=== PATIENT | female | born 1950 | race Caucasian/White ===

== ENCOUNTER 2022-01-15 08:03 | Emergency (ER) | payer MEDICARE, SELFPAY ==
[2022-01-15 08:16] VITALS: BP 156/92; PULSE 79; RESP 18; TEMP 37; O2SAT 99
--- NOTE | 2022-01-15 08:22 | ED.EYEPROB ---
HPI - Eye Problem General Chief complaint: Eye Problems Stated complaint: Right Eye Pain Time Seen by Provider: 01/15/22 08:15 Source: patient and RN notes reviewed Mode of arrival: ambulatory Limitations: no limitations History of Present Illness HPI Narrative: 71-year-old female presents to the [facility] with right lower eyelid redness swelling that started last night. Patient states she has had increased watering of her eye. Denies any change in vision. No treatment prior to arrival. Patient reports being blind in the left eye due to macular degeneration. MD chief complaint: other (right lower eye jess red and pain) Related Data Home Medications Medication Instructions Recorded Confirmed apixaban [Eliquis] 5 mg PO DAILY 01/15/22 01/15/22 atorvastatin 40 mg PO DAILY 01/15/22 01/15/22 mirabegron [Myrbetriq] 25 mg PO DAILY 01/15/22 01/15/22 quinapril 20 mg PO DAILY 01/15/22 01/15/22 Allergies Allergy/AdvReac Type Severity Reaction Status Date / Time latex Allergy Unknown Hives Verified 01/15/22 08:22 Review of Systems Review of Systems: All systems reviewed & are unremarkable except as noted in HPI and below Constitutional: Constitutional: Reports no additional constitutional complaints, Denies chills and Denies fever(s) Eyes: Eyes: Reports as per HPI, Denies exophthalmos, Denies change in vision, Denies loss of vision and Reports eye pain (right lower eye lid pain, swelling and redness) ENT: Reports system reviewed and no additional complaints, except as documented Cardiovascular: Cardiovascular: Reports no additional cardiovascular complaints Respiratory: Respiratory: Reports no additional respiratory complaints Gastrointestinal: Gastrointestinal: Reports no additional gastrointestinal complaints Musculoskeletal: Musculoskeletal: Reports no additional musculoskeletal complaints Integumentary/Breasts: Skin/Breast: Reports system reviewed and no additional complaints, except as docu Neurologic: Reports system reviewed and no additional complaints, except as documented Psychiatric: Psychiatric: Reports no additional psychiatric complaints Allergic/Immunologic: Allergic/Immunologic: Reports no additional allergic/immunologic complaints PMFSH Past Medical History Medical History (Updated 01/15/22 @ 08:27 by Miri Gomez APRN) Afib High cholesterol Hypertension Surgical History Surgical History (Updated 01/15/22 @ 08:25 by Miri Gomez APRN) History of appendectomy No history of previous surgery Family History Family History Mother Patient's mother is Social History Social History (Updated 01/15/22 @ 08:25 by Miri Gomez APRN) Alcohol intake: never Living arrangements: with family Gender identity (if verbalized by the patient): Female Comments At the time of my signature, I reviewed and agree with the nursing past medical, surgical, social, and family history. There is no relevant family history pertinent to the patient complaint. Exam Const: General: healthy appearing, no acute distress and alert Nutritional Appearance: well nourished Orientation/consciousness: patient oriented x3 Limitations: no limitations HENMT: Head: normal to inspection Ears: external ears normal and EAC's normal General nose exam: No nasal discharge present Face and sinus: normal facial exam and face symmetric Throat: posterior oropharynx normal Eyes: Alignment and Position: alignment normal Eyelids: eyelid abnormality right lower eyelid erythema, swelling and tenderness; no crusting or scaling of lid margins Pupils: Equal, round and reactive pupils present EOM: EOMs intact bilaterally Direct Ophthalmoscopy: no photophobia Neck: Neck: normal visual inspection, no lymphadenopathy and no meningeal signs Chest: Chest palpation & inspection: normal inspection of the chest Resp: Effort & Inspection: normal respiratory
== END 2022-01-15 08:32 | disposition home or self-care (01) ==
PROVIDERS: Emergency Provider Nurse Practitioner; PCP Family Medicine Adolescent Medicine
DX: H01.002 Unspecified blepharitis right lower eyelid (principal); I48.91 Unspecified atrial fibrillation; E78.00 Pure hypercholesterolemia, unspecified; I10 Essential (primary) hypertension
CPT/HCPCS: 99213; G0463

== ENCOUNTER 2023-01-27 01:09 | Day surgery (SDC) | payer MEDICARE, SELFPAY ==
[2023-01-15 13:18] VITALS: BMI 25.2
--- NOTE | 2023-01-24 15:45 | PM.HPGS ---
History of Present Illness History of Present Illness Consent: Risks, benefits, and alternatives have been discussed and questions answered. Patient agrees to proceed with procedure. Chief complaint: Rectal Bleed Narrative: Bere Viera is a 72 year old female referred because of a positive Cologuard test. 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 There was a prior history of ischemic colitis about 15 years ago Review of Systems Review of Systems: All systems reviewed & are unremarkable except as noted in HPI and below PMFSH Past Medical History Medical History History of CVA (cerebrovascular accident) (2014) History of ischemic colitis Surgical History Surgical History History of appendectomy (~1964) History of total abdominal hysterectomy and bilateral salpingo-oophorectomy (2001) Family History Family History Mother Patient's mother is Breast cancer Father MVA (motor vehicle accident) Social History Social History Smoking status: Never smoker Second hand tobacco smoke exposure: No Alcohol intake: never Substance use: never Substance use type: does not use Living arrangements: with family Occupation/Education: retired Gender identity (if verbalized by the patient): Female Sexual Orientation (if Verbalized by the Patient): Straight or Heterosexual Spiritual care concerns: No Agree to blood products: Yes Meds Home Medications and Allergies Home Medications Medication Instructions Recorded Confirmed Type calcium carbonate 600 mg calcium 600 mg PO BID 02/27/22 01/15/23 History (1,500 mg) tablet (Calcium) apixaban 5 mg tablet (Eliquis) 5 mg PO BID #180 tabs 05/13/22 01/15/23 Rx atorvastatin 40 mg tablet 40 mg PO DAILY #90 tabs 06/10/22 01/15/23 Rx metoprolol succinate 100 mg 100 mg PO DAILY #90 tabs 06/10/22 01/27/23 Rx tablet,extended release 24 hr mirabegron 25 mg tablet,extended 25 mg PO DAILY #90 tabs 06/10/22 01/15/23 Rx release 24 hr (Myrbetriq) hydrochlorothiazide 25 mg tablet 25 mg PO DAILY #90 tabs 09/10/22 01/15/23 Rx pantoprazole 40 mg tablet,delayed 40 mg PO QAM #90 tabs 09/10/22 01/15/23 Rx release lisinopril 20 mg tablet 20 mg PO DAILY #90 tabs 10/10/22 01/15/23 Rx Allergies Allergy/AdvReac Type Severity Reaction Status Date / Time latex Allergy Unknown Hives Verified 01/27/23 12:49 Exam Const: General: alert Orientation/consciousness: patient oriented x3 Resp: Auscultation: clear to auscultation bilaterally Cardio: Rhythm: regular rhythm GI: GI Palp: Yes Soft to palpation and No Tenderness to palpation present (GI) Neuro: General: patient oriented x3 Assessment and Plan Assessment and plan (1) Positive colorectal cancer screening using Cologuard test: Code(s): R19.5 - Other fecal abnormalities Status: Acute Assessment and Plan: Colonoscopy with possible biopsy or polypectomy or cautery or injection of substances.
[2023-01-27 12:50] VITALS: BP 189/89; PULSE 77; RESP 20; TEMP 36.1; O2SAT 100
[2023-01-27] MEDS: LACTATED RINGERS 1,000 ML 150 ML IV CONT (13:03)
--- NOTE | 2023-01-27 13:17 | WPDANESEPPF ---
Anes - Initial Pre Proc Eval Procedure: Operation Date: 01/27/23 14:30 Proposed Procedures p Colonoscopy - Manoj Garcia MD Date/Time: 01/27/23 13:17 Surgeon: Manoj Garcia MD Pre Op Diagnosis: Rectal Bleed Patient Data Age: 72 Gender: F Height: 1.6 m Weight: 64.1 kg Last Vital Signs Temp 97 F L 01/27/23 12:50 Pulse 77 01/27/23 12:50 Resp 20 01/27/23 12:50 BP 189/89 H 01/27/23 12:50 Pulse Ox 100 01/27/23 12:50 O2 Del Method Room Air 01/27/23 12:50 Allergies Allergy/AdvReac Type Severity Reaction Status Date / Time latex Allergy Unknown Hives Verified 01/27/23 12:49 Home Medications Medication Instructions Recorded Confirmed Type calcium carbonate 600 mg calcium 600 mg PO BID 02/27/22 01/15/23 History (1,500 mg) tablet (Calcium) apixaban 5 mg tablet (Eliquis) 5 mg PO BID #180 tabs 05/13/22 01/15/23 Rx atorvastatin 40 mg tablet 40 mg PO DAILY #90 tabs 06/10/22 01/15/23 Rx metoprolol succinate 100 mg 100 mg PO DAILY #90 tabs 06/10/22 01/27/23 Rx tablet,extended release 24 hr mirabegron 25 mg tablet,extended 25 mg PO DAILY #90 tabs 06/10/22 01/15/23 Rx release 24 hr (Myrbetriq) hydrochlorothiazide 25 mg tablet 25 mg PO DAILY #90 tabs 09/10/22 01/15/23 Rx pantoprazole 40 mg tablet,delayed 40 mg PO QAM #90 tabs 09/10/22 01/15/23 Rx release lisinopril 20 mg tablet 20 mg PO DAILY #90 tabs 10/10/22 01/15/23 Rx Patient hx anesthesia problems: none Family hx anesthesia problems: none Results Review: All pre-operative results and documents have been reviewed as part of the pre-operative evaluation. [facility] Past Medical History Medical History History of CVA (cerebrovascular accident) (2014) History of ischemic colitis Surgical History Surgical History History of appendectomy (~1965) History of total abdominal hysterectomy and bilateral salpingo-oophorectomy (2001) Family History Family History Mother Patient's mother is Breast cancer Father MVA (motor vehicle accident) Social History Social History Smoking status: Never smoker Second hand tobacco smoke exposure: No Alcohol intake: never Substance use: never Substance use type: does not use Living arrangements: with family Occupation/Education: retired Gender identity (if verbalized by the patient): Female Sexual Orientation (if Verbalized by the Patient): Straight or Heterosexual Spiritual care concerns: No Agree to blood products: Yes Anes - Eval Final PreProcedure Day of Procedure 01/27/23 13:17 Patient weight: normal Heart: regular rate and rhythm Lungs: clear to auscultation Airway: Mallampati scale class II Neurological: alert and oriented Last oral intake: >/= 8 hours ASA classification: III Emergent: no Anesthetic plan: proceed Anesthesia type and monitoring: general GIVS and standard monitoring Results Review: All pre-operative results and documents have been reviewed as part of the pre-operative evaluation. Informed Consent: The patient's anesthetic plan and its attendant risks and benefits were discussed with the patient/family/POA. Questions were solicited and answers provided to the satisfaction of the patient/family/POA.
[2023-01-27 13:35] VITALS: BP 148/70; PULSE 70; RESP 19; O2SAT 94
[2023-01-27 13:45] VITALS: BP 157/88; PULSE 64; RESP 19; O2SAT 100
[2023-01-27 13:55] VITALS: BP 170/90; PULSE 67; RESP 17; O2SAT 100
== END 2023-01-27 14:03 | disposition home or self-care (01) ==
PROVIDERS: PCP Family Medicine Adolescent Medicine; Visit Provider Internal Medicine Gastroenterology
PROC: 0DJD8ZZ Inspection of Lower Intestinal Tract, Via Natural or Artificial Opening Endoscopic (ICD-10-PCS; CPT 45378; principal; 2023-01-27 14:30)
DX: Z12.11 Encounter for screening for malignant neoplasm of colon (principal); R19.5 Other fecal abnormalities; Z86.73 Personal history of transient ischemic attack (TIA), and cerebral infarction without residual deficits; Z79.01 Long term (current) use of anticoagulants
CPT/HCPCS: G0121; J2704; J7120

== ENCOUNTER → 2023-03-13 14:56 | Outpatient (CLI) | payer MEDICARE, SELFPAY ==
--- NOTE | ~2023-03-13 | MM_ITS ---
EXAMINATION: MM screening sanjay BI w mason HISTORY: Screening mammogram TECHNIQUE: Craniocaudal and mediolateral oblique 3-D tomosynthesis images were obtained and synthetic 2-D images were generated. CAD analysis was submitted and interpreted. COMPARISON: 06/06/2018, 05/28/2016 bilateral screening mammogram examinations BREAST PARENCHYMAL COMPOSITION: There are scattered areas of fibroglandular density. FINDINGS: There is no evidence of suspicious mass, calcification, or architectural distortion to sugg est malignancy in either breast. There has been no suspicious interval change. IMPRESSION: 1. No mammographic evidence of malignancy. 2. Recommend routine screening mammography in one year. BI-RADS Category 1: Negative Reviewed, dictated and finalized at location A.
== END ==
PROVIDERS: PCP Family Medicine Adolescent Medicine; Visit Provider Family Medicine Adolescent Medicine
DX: Z12.31 Encounter for screening mammogram for malignant neoplasm of breast (principal)
CPT/HCPCS: 77063; 77067

== ENCOUNTER 2023-12-25 13:28 | Outpatient (CLI) | payer MEDICARE, SELFPAY ==
--- NOTE | ~2023-12-25 | XR_ITS ---
EXAMINATION: XR barium swallow modified DATE: 12/25/2023 14:25 INDICATION: Dysphagia. TECHNIQUE: The patient was given barium-containing material of multiple consistencies to swallow by t he speech pathologist while I performed fluoroscopy. Fluoroscopy exposure time was 0.7 minutes. The n umber of fluoroscopy images saved to the PACS was 1. Dose-area product was 0.514 Gy-cm^2. FINDINGS: The oral stage, pharyngeal stage, and cervical/esophageal stage of the swallow are normal. IMPRESSION: 1. Normal modified barium swallow. 2. Please refer to the speech therapy report for recommendations. Reviewed, dictated and finalized at location A.
--- NOTE | 2023-12-26 17:13 | REHSTMBS ---
Assessment and note entered by Aracelis Osorio, MARKETING SALES REPRESENTATIVE Modified Barium Swallow Evaluation Feeding Type Recommended Oral Food Consistency Regular, Level 7 Liquid Consistency Thin (0) ST Clinical Summary MODIFIED BARIUM SWALLOW STUDY This patient was seen for a Modified Barium Swallow study at the request of her physician. Patient reports that she has noticed that meat becomes hung up in her throat but denied difficulty swallowing most other foods. Patient was viewed in the lateral position to the level of C5/C6. Patient was presented with thin liquid contrast medium per cup, pudding mixed with semi-solid contrast medium per spoon, and crackers and fruit cocktail pieces both coated with the semi-solid mixture. She exhibited quick swallows with no evidence of penetration/ aspiration and no significant pharyngeal residue. Results suggest the patient's swallowing skills are within normal limits. She was instructed to use head flexion (chin tucked toward chest) when swallowing [id number] foods and to cut meat and other solid foods into smaller pieces. Patient is referred back to her physician for further assessment of her complaints. Thank you for this referral.
== END 2023-12-25 13:29 | disposition home or self-care (01) ==
LOC: ANHIMG 13:29
PROVIDERS: PCP Family Medicine Adolescent Medicine; Visit Provider Family Medicine Adolescent Medicine
DX: R13.10 Dysphagia, unspecified (principal)
CPT/HCPCS: 92611

== ENCOUNTER 2025-09-20 08:45 | Emergency (ER) | payer MEDICARE, SELFPAY ==
--- NOTE | ~2025-09-20 | XR_ITS ---
Examination: XR knee RT 3V, XR wrist LT min 3V, XR shoulder LT min 2V Clinical History: trauma Comparison: None Technique: 4 views left shoulder, 4 views left wrist, 3 views right knee Findings/impression: Left shoulder: 1. No fracture or dislocation left shoulder. 2. Mild degenerative changes glenohumeral joint and AC joint. Left wrist: 1. No fracture or dislocation left wrist. Right knee: 1. No fracture, dislocation, or effusion right knee. 2. Minimal marginal osteophytes medial compartment. Reviewed, dictated and finalized at location R. ETIC INTERN
--- NOTE | ~2025-09-20 | CT_ITS ---
EXAMINATION: CT facial & cervical spine wo DATE: 09/20/2025 09:46 INDICATION: Trauma. TECHNIQUE: Computed tomography (CT) of the maxillofacial region and cervical spine was performed without intravenous contrast. Automated exposure control and iterative reconstruction technique were employed. The dose-length product was 179.13 mGy-cm. COMPARISON: Head CT 05/30/2015 FINDINGS: MAXILLOFACIAL CT: There is rightward deviation of the nasal septum. There is an old fracture deformity of left nasal bone. There is mild mucosal thickening in the paranasal sinuses. CERVICAL SPINE CT: There is mild kyphosis of cervical spine. There is 3 degrees dextrocurvature of cervical spine. Vertebral body heights are normal. There is mildly decreased disc height at C3-C4 and severely decreased disc height from C4-C5 through C6- C7. There is multilevel severe uncovertebral joint and facet joint o steoarthritis. There is mild neural foraminal stenosis at multiple levels on either side. There is mild central canal stenosis at C3-C4, C4-C5, C5-C6, and C6-C7. IMPRESSION: 1. No acute fracture. 2. Severe cervical spondylosis. Reviewed, dictated and finalized at location E. CTOR OF VITAL STATISTICS
--- NOTE | ~2025-09-20 | CT_ITS ---
EXAMINATION: CT brain wo con DATE: 09/20/2025 09:46 INDICATION: Trauma. TECHNIQUE: Computed tomography (CT) of the head was performed without intravenous contrast. The mA was adjusted according to patient size. Iterative reconstruction technique was employed. The dose-length product was 605.33 mGy-cm. COMPARISON: Head CT 05/30/2015 FINDINGS: There is an old infarct involving the right basal ganglia, anterior limb right internal capsule, and right frontal lobe ayala radiata. There are scattered areas of low attenuation in the cerebral white matter. There is no intracranial hemorrhage, acute infarction, or abnormal intracranial mass lesion. There is ex vacuo dilatation of right lateral ventricle. The orbits are normal. There is mild mucosal thickening in the paranasal sinuses. The mastoid air cells are normal. IMPRESSION: 1. Old infarct involving the right basal ganglia, anterior limb right internal capsule, and right frontal lobe ayala radiata. 2. Moderate nonspecific cerebral white matter disease, which likely represents chronic small vessel ischemic disease. Reviewed, dictated and finalized at location E. CHIEF'S AIDE
--- NOTE | ~2025-09-20 | XR_ITS ---
XR elbow LT min 3V 09/20/2025 10:13 Indication: Trauma. Left elbow pain. Procedure: 3 views left elbow Comparison: No prior studies for comparison. Findings: There is a nondisplaced radial neck fracture. Large joint effusion. Mild osteoarthritis of the elbow. Impression: 1: Nondisplaced radial neck fracture. Reviewed, dictated and finalized at location O. ROBE IMAGE CONSULTANT Impression: 1: Nondisplaced radial neck fracture.
[2025-09-20 08:49] VITALS: BP 183/92; PULSE 65; RESP 16; TEMP 36.4; O2SAT 98
--- NOTE | 2025-09-20 09:31 | ED.GENADULT ---
HPI - General Adult General Chief complaint: Fall Stated complaint: fall this am blood thinner, nose left arm right le Time Seen by Provider: 09/20/25 08:54 History of Present Illness HPI narrative: 75-year-old female presented to the emergency department for evaluation for injury sustained from a ground level fall. Patient was walking and tripped over a bump in the sidewalk. Patient was attempting to protect her face when she fell and she ended up injuring her left arm and did have an abrasion to her nose. Patient also has an abrasion to her right knee. Patient is on Eliquis for AFib. Patient did take Tylenol for pain control. patient declined any additional medications for pain control Related Data Home Medications ?Medication ?Instructions ?Recorded ?Confirmed ?Last Taken ?Type calcium carbonate (Calcium 600) 600 mg PO BID 02/27/22 04/12/25 Unknown History Allergies Allergy/AdvReac Type Severity Reaction Status Date / Time latex Allergy Unknown Hives Verified 09/20/25 08:54 Review of Systems Review of Systems: All systems reviewed & are unremarkable except as noted in HPI and below PMFSH Past Medical History Medical History (Updated 09/20/25 @ 10:47 by Igor Hidalgo MD) Positive colorectal cancer screening using Cologuard test History of CVA (cerebrovascular accident) (2014) History of ischemic colitis Surgical History Surgical History History of total abdominal hysterectomy and bilateral salpingo-oophorectomy (2001) History of appendectomy (~1965) Family History Family History Mother Patient's mother is Breast cancer Father MVA (motor vehicle accident) Social History Social History (Updated 04/12/25 @ 07:16 by Esme Gaines CMA) Smoking status: Never smoker Second hand tobacco smoke exposure: No Alcohol intake: never Substance use: never Substance use type: does not use Lack of Transportation: No Lack of Food: Never True Current Housing: I Have Housing Concerned About Future Housing: No Difficulty Paying Gas/Electric Bills: No Difficulty Paying for Meds: No Currently Unemployed: No Education: High School Diploma/GED Difficulty w/ Childcare or Family Care: No Living arrangements: with family Occupation/Education: retired Gender identity (if verbalized by the patient): Female Sexual Orientation (if Verbalized by the Patient): Straight or Heterosexual Spiritual care concerns: No Agree to blood products: Yes Exam Narrative: APPEARANCE: Uncomfortable appearing HEAD: normocephalic, atraumatic. EYES: PERRLA/EOMI, conjunctivae clear. NOSE: Normal no drainage EARS:TMS clear with good light reflex. THROAT: Pharynx clear, no exudate. NECK: Supple. No adenopathy, no masses. RESPIRATORY: Airway patent, respirations nonlabored. Clear to auscultation bilaterally, no rales, rhonchi, wheezing. CARDIOVASCULAR: Regular rate and rhythm without murmurs rubs or gallops. ABDOMINAL: Soft, nontender, nondistended, normal bowel sounds MUSCULOSKELETAL: Left shoulder tenderness with decreased range of motion, left elbow tenderness with decreased range of motion, no deformity NEURO: Alert. Cranial nerves II through XII intact. Good gait. Good coordination SKIN: Facial abrasion Course Vital Signs Vital signs: Vital Signs Temperature 97.5 F L 09/20/25 08:49 Pulse Rate 65 09/20/25 08:49 Respiratory Rate 16 09/20/25 08:49 Blood Pressure 183/92 H 09/20/25 08:49 Pulse Oximetry 98 09/20/25 08:49 Oxygen Delivery Room Air 09/20/25 08:49 Temperature 97.5 F L 09/20/25 08:49 Pulse Rate 84 09/20/25 11:39 Respiratory Rate 14 09/20/25 11:39 Blood Pressure 134/86 09/20/25 11:39 Pulse Oximetry 98 09/20/25 11:39 Oxygen Delivery Room Air 09/20/25 08:49 [facility] Narrative Medical decision making narrative: 75-year-old female presents emergency department for evaluation of high having a ground level fall. Patient had negative imaging of brain, facial bones and cervical spine. Patient had negative knee x-ray and wrist x-ray and shoulder x-ray but patient does have a radial head fracture on the left elbow. Patient was provided a sling for comfort. Patient was encouraged close follow-up with Orthopedics. All questions concerns were addressed patient was well-appearing at time of discharge. Differential Diagnosis Differential Diagnosis: Subdural hematoma, subarachnoid hemorrhage, nasal fracture, cervical spine fracture, elbow fracture, elbow dislocation, wrist fracture, knee contusion, knee fracture Imaging Data Radiologist's impression: ITS Impressions Head CT 09/20/25 09:50 IMPRESSION: 1. Old infarct involving the right basal ganglia, anterior limb right internal capsule, and right frontal lobe ayala radiata. 2. Moderate nonspecific cerebral white matter disease, which likely represents chronic small vessel ischemic disease. Head/Cervical Spine/Facial Bones CT 09/20/25 09:53 IMPRESSION: 1. No acute fracture. 2. Severe cervical spondylosis. Elbow X-Ray 09/20/25 10:13 Impression: 1: Nondisplaced radial neck fracture. Discharge Plan Discharge Clinical Impression: Closed fracture of neck of left radius Patient Disposition: Home Condition: Stable Instructions: Antibiotic Form, Elbow Fracture (ED), How to Use a Sling (ED) Additional Instructions: Tylenol for pain control. Sling as directed for comfort. Have close follow-up with Orthopedics. If you have any worsening symptoms then please call or return to the emergency department. Patient Language: Jordanian Prescriptions: No Action calcium carbonate [Calcium 600] 600 mg calcium (1,500 mg) tablet 600 mg PO BID metoprolol succinate 100 mg tablet extended release 24 hr 100 mg PO DAILY Qty: 90 3RF lisinopril 20 mg tablet 20 mg PO DAILY Qty: 90 3RF hydrochlorothiazide 25 mg tablet 25 mg PO DAILY Qty: 90 3RF atorvastatin 40 mg tablet 40 mg PO DAILY Qty: 90 2RF mirabegron [Myrbetriq] 25 mg tablet extended release 24 hr 25 mg PO DAILY Qty: 90 2RF Eliquis 5 mg tablet 5 mg PO BID Qty: 180 3RF pantoprazole 40 mg tablet,delayed release (DR/EC) 40 mg PO QAM Qty: 90 3RF nitrofurantoin monohyd/m-cryst [Macrobid] 100 mg capsule 100 mg PO BID 7 Days Qty: 14 0RF Rx Instructions: must administer with a meal/food Follow-up/Referrals: Jero Saini MD [Physician, Orthopedics] Manoj Stanley MD [Primary Care Provider, Family Practice] Todd Love MD [Physician, Orthopedics]
[2025-09-20 11:39] VITALS: BP 134/86; PULSE 84; RESP 14; O2SAT 98
== END 2025-09-20 11:40 | disposition home or self-care (01) ==
PROVIDERS: Emergency Provider Emergency Medicine; PCP Family Medicine
DX: S52.135A Nondisplaced fracture of neck of left radius, initial encounter for closed fracture (principal); Z86.73 Personal history of transient ischemic attack (TIA), and cerebral infarction without residual deficits; Z90.710 Acquired absence of both cervix and uterus; M47.812 Spondylosis without myelopathy or radiculopathy, cervical region; Z79.01 Long term (current) use of anticoagulants; Z79.899 Other long term (current) drug therapy; W01.0XXA Fall on same level from slipping, tripping and stumbling without subsequent striking against object, initial encounter
CPT/HCPCS: 70450; 70486; 72125; 73030; 73080; 73110; 73562; 99284; A4565